=== PATIENT | female | born 1980 | race Caucasian/White ===

== ENCOUNTER 2017-04-22 17:05 | Emergency (ER) | payer OTHER ==
[~2017-04-22] VITALS: Ht 162.6 cm; Wt 106.6 kg
[2017-04-22 17:54] LABS: CHLORIDE 103 mEq/L (99-109); POTASSIUM 3.9 mEq/L (3.7-5.4); SODIUM 135 mEq/L (136-147)
[2017-04-22 17:55] LABS: HEMATOCRIT 39.1 % (36.0-46.0); MCH 29.5 PG (29.0-34.0); MCHC 33.5 G/DL (30.0-36.0); MCV 88.1 FL (83-99); MEAN PLAT.VOLUME 10.2 uM^3 (9.5-12.4); PLATELET COUNT 194 K/uL (156-360); RBC DIS.WIDTH-CV 12.1 % (11.8-14.6); RBC DIS.WIDTH-SD 39.2 % (39-53); RED BLOOD COUNT 4.44 M/uL (3.80-5.20); WHITE BLOOD COUNT 9.9 K/uL (4.1-10.2)
[2017-04-22 17:56] LABS: GLUCOSE 101 mg/dL (70-99)
[2017-04-22 17:57] LABS: ANION GAP 9 MEQ/L (2-14)
[2017-04-22 17:58] LABS: TOTAL BILIRUBIN 0.3 mg/dL (0.0-1.0)
[2017-04-22 18:00] LABS: ALKALINE PHOSPHATASE 68 IU/L (3-129); GFR ESTIMATE (CALCULATED) > 59 mL/min/
[2017-04-22 18:01] LABS: UREA NITROGEN (BUN) 5 mg/dL (9-23)
[2017-04-22] MEDS ORDERED: KEPPRA500 MG PO (21:15)
[2017-04-22 21:55] VITALS: BP 130/71
== END 2017-04-22 21:56 | disposition home or self-care (01) ==
LOC: EME → EDBD 17:05 → EME 17:05
PROVIDERS: Emergency Medicine
DX: R56.9 Unspecified convulsions (principal); G35 Multiple sclerosis; I45.10 Unspecified right bundle-branch block; F17.200 Nicotine dependence, unspecified, uncomplicated
CPT/HCPCS: 70450; 80053; 80156; 85027; 93005; 99281; 99284; J1953; J7050

== ENCOUNTER 2017-06-17 16:22 | Emergency (ER) | payer OTHER ==
[~2017-06-17] VITALS: Ht 162.6 cm; Wt 107.2 kg
[~2017-06-17 16:22] MED LIST: KEPPRA500 MG PO
[2017-06-17 17:16] LABS: HEMATOCRIT 43.3 % (36.0-46.0); MCH 30.7 PG (29.0-34.0); MCHC 34.6 G/DL (30.0-36.0); MCV 88.7 FL (83-99); MEAN PLAT.VOLUME 10.1 uM^3 (9.5-12.4); PLATELET COUNT 265 K/uL (156-360); RBC DIS.WIDTH-CV 11.9 % (11.8-14.6); RBC DIS.WIDTH-SD 38.5 % (39-53); RED BLOOD COUNT 4.88 M/uL (3.80-5.20)
[2017-06-17 17:29] LABS: CHLORIDE 102 mEq/L (99-109); POTASSIUM 3.6 mEq/L (3.7-5.4); SODIUM 131 mEq/L (136-147)
[2017-06-17 17:32] LABS: GLUCOSE 103 mg/dL (70-99)
[2017-06-17 17:33] LABS: ANION GAP 8 MEQ/L (2-14); TOTAL BILIRUBIN 0.2 mg/dL (0.0-1.0)
[2017-06-17 17:35] LABS: ALKALINE PHOSPHATASE 83 IU/L (3-129); GFR ESTIMATE (CALCULATED) > 59 mL/min/; SERUM ETHYL ALCOHOL < 10 mg/dL
[2017-06-17 17:36] LABS: UREA NITROGEN (BUN) 6 mg/dL (9-23)
[2017-06-17 17:44] LABS: QUANTITATIVE HCG < 4.0 MIU/ML
[2017-06-17 20:01] LABS: ADD MEDTOX COMMENT Y; AMPHETAMINE NEGATIVE (500 ng/mL); BARBITURATES NEGATIVE (200 ng/mL); BENZODIAZEPINES PRESUMPTIVE POSITIVE (150 ng/mL); COCAINE NEGATIVE (150 ng/mL); INTERNAL CONTROLS VALID? YES; METHADONE NEGATIVE (200 ng/mL); METHAMPHETAMINE NEGATIVE (500 ng/mL); OPIATES (MORPHINE) NEGATIVE (100 ng/mL); OXYCODONE NEGATIVE (100 ng/mL); PHENCYCLIDINE NEGATIVE (25 ng/mL); PROPOXYPHENE NEGATIVE (300 ng/mL); THC CANNABINOIDS NEGATIVE (50 ng/mL); TRICYCLIC ANTIDEPRESSANTS NEGATIVE (300 ng/mL)
[2017-06-17 20:26] LABS: BENZODIAZEPINES QUANT VALUE 0 NG/ML; BENZODIAZEPINES, URINE SCREEN Negative (200 ng/mL)
[2017-06-17 20:49] VITALS: BP 131/76
== END 2017-06-17 20:56 | disposition home or self-care (01) ==
LOC: EME 16:22
PROVIDERS: Emergency Medicine
DX: G40.909 Epilepsy, unspecified, not intractable, without status epilepticus (principal); G35 Multiple sclerosis; M06.9 Rheumatoid arthritis, unspecified; G50.0 Trigeminal neuralgia; I10 Essential (primary) hypertension; F12.90 Cannabis use, unspecified, uncomplicated; F32.9 Major depressive disorder, single episode, unspecified; F41.9 Anxiety disorder, unspecified; F17.200 Nicotine dependence, unspecified, uncomplicated
CPT/HCPCS: 80053; 80156; 80175 90; 83605; 84702; 84999; 85027; 99281; 99285; G0480; J1885; J2405